=== PATIENT | female | born 1940 | race Caucasian/White ===

== ENCOUNTER 2017-02-15 06:26 | Emergency (ER) | payer OTHER ==
[~2017-02-15] VITALS: Ht 161.3 cm; Wt 53.2 kg
[~2017-02-15 06:26] MED LIST: BABY81CH CHEW; LEVO.075 PO
[2017-02-15 06:40] VITALS: BP 169/89; PULSE 71; RESP 16; TEMP 98.7; O2SAT 98
--- NOTE | 2017-02-15 07:13 | PD ---
HPI Chief Complaint: Injury Time Seen by Provider: 07:13 Travel History International Travel<30 days: No Contact w/Intl Traveler<30days: No Traveled to known affect area: No History of Present Illness HPI 77-year-old female came to the emergency room with history of injury to her right elbow 5 days ago. Patient tripped and tried to catch her fall and ended up hitting her elbow on a closet nearby. Since then she has noticed that her elbow and slowly her forearm has been hurting. There is a swelling that is progressively getting worse on the elbow. She has been trying to ice it alternating it with heat. Today decided to come in since the pain was worsening. No other issues. Vital signs were stable. [facility] Past Medical History Narrative Medical List of her past medical, surgical, social and family history was reviewed from the nursing note. Hx Anticoagulant Therapy: Yes (ASA 81MG) Cardiovascular Problems: Yes High Cholesterol: Yes Chemotherapy: No Cerebrovascular Accident: No Coronary Artery Disease: Yes Diabetes: No Diminished Hearing: No Respiratory: No Thyroid Disease: Yes (HYPO) Menopausal: Yes : 4 Para: 4 Past Surgical History Section: Yes (X4) Cholecystectomy: Yes Hysterectomy: No Social History Alcohol Use: No Tobacco Use: Yes (1 ppd) Substance Use: No Allergies-Medications (Allergen,Severity, Reaction): Coded Allergies: Penicillin (Verified Allergy, Severe, rash, 02/18/17) Sulfa (Verified Allergy, Severe, rash, 02/18/17) Tetanus Toxoid (Verified Adverse Reaction, Severe, SWELLING AT SITE, ) Comments List of her allergies reviewed from the nursing note. Reported Meds & Prescriptions Reported Meds & Active Scripts Active Hydrocodone-Acetaminophen 5-325 mg Tab 1 Tab PO Q6H PRN Reported Synthroid (Levothyroxine Sodium) 75 Mcg Tab 75 Mcg PO DAILY Aspirin 81 Mg Chew 81 Mg CHEW DAILY Narrative Medication List of her home medications reviewed from the nursing note. Review of Systems Except as stated in HPI: all other systems reviewed are Neg Physical Exam Narrative GENERAL: Awake, alert, no obvious distress SKIN: Focused skin assessment warm/dry. Skin over the right elbow is erythematous and swollen. HEAD: Atraumatic. Normocephalic. EYES: Pupils equal and round. No scleral icterus. No injection or drainage. ENT: No nasal bleeding or discharge. Mucous membranes pink and moist. NECK: Trachea midline. No JVD. CARDIOVASCULAR: Regular rate and rhythm. No murmur appreciated. RESPIRATORY: No accessory muscle use. Clear to auscultation. Breath sounds equal bilaterally. GASTROINTESTINAL: Abdomen soft, non-tender, nondistended. Hepatic and splenic margins not palpable. MUSCULOSKELETAL: No obvious deformities. No clubbing. No cyanosis. No edema. Right elbow swollen but distal pulses and sensation intact. Limited motion at the elbow and the wrist joint due to the pain. NEUROLOGICAL: Awake and alert. No obvious cranial nerve deficits. Motor grossly within normal limits. Normal speech. PSYCHIATRIC: Appropriate mood and affect; insight and judgment normal. Data Data Last Documented VS Orders Elbow, Complete (4 Vws) (02/15/17 06:43) Ibuprofen (Motrin) (02/15/17 07:15) Support Splint (02/15/17 08:21) Fiberglass Sugartong Sp Ad Arm (02/15/17 ) Sling Cradle Arm (02/15/17 ) MDM Medical Decision Making Medical Screen Exam Complete: Yes Emergency Medical Condition: Yes Medical Record Reviewed: Yes Differential Diagnosis Elbow fracture, elbow dislocation, sprain Narrative Course 8:26 AM radiology reports came back and he is questioning a possible medial epicondylar fracture. Given patient's swelling and discomfort I have decided to put a sugar tong splint. This is getting applied right now. I've explained this to the patient. 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 She understands all and make an appointment for follow-up. Procedures EKG Prior to Arrival: No Diagnosis Primary Impression: Fracture of medial epicondyle of humerus Qualified Code: S42.444A - Closed nondisplaced fracture of medial epicondyle of right humerus, unspecified fracture morphology, initial encounter Referrals: Tha Terrazas MD 2 days Additional Instructions: Please keep the splint clean and dry. Keep the arm elevated above the heart level. Apply ice compress 20 minutes on and 20 minutes off. Follow-up with the orthopedist's name and number given provided to you.You have been provided prescriptions for pain medication. Take them as needed only. The medication will make you groggy and hence keeping that in mind be careful. The medication can also make it constipated. Hence another prescription for stool softener has also been provided. Take the stool softener if you are taking the pain medication. Med/Other Pt SpecificInfo: Prescription(s) given Scripts Hydrocodone-Acetaminophen 5-325 mg Tab1 Tab PO Q6H PRN (PAIN) #15 TAB Ref 0 Prov:Paul Elizabeth MD 02/15/17 Disposition: 01 DISCHARGE HOME Condition: Stable Paul Elizabeth MD Feb 15, 2017 07:13 Paul Elizabeth MD Feb 15, 2017 07:13
[2017-02-15] MEDS ORDERED: IBUPROFEN 400 MG TAB PO ONE (07:15)
[2017-02-15] MEDS ORDERED: LEVO.075 PO (07:18)
[2017-02-15] MEDS ORDERED: ASPI81CH CHEW (07:18)
--- NOTE | 2017-02-15 08:10 | RADHPO ---
EXAM DATE/TIME: 02/15/2017 07:05 [facility] COMPARISON: No previous studies available for comparison. INDICATIONS : Right elbow pain and swelling; hit elbow on corner of the wall. MEDICAL HISTORY : None. SURGICAL HISTORY : None. ENCOUNTER: Initial ACUITY: 3 days PAIN SCORE: 5/10 LOCATION: Right elbow. FINDINGS: There is cortical irregularity involving the medial epicondyle of the distal humerus raising possibil ity of acute fracture or erosive arthritic change. [id number] correlation is recommended. An elbow j oint effusion is likely. There is soft tissue swelling surrounding the right elbow. CONCLUSION: 1. Cortical irregularity involving the medial epicondyle o the right distal humerus raising possibil ity of acute fracture versus erosive arthritic change. A small elbow joint effusion is likely. Soft tissue swelling is also noted. Clinical correlation is recommended. Khari Jones MD on February 15, 2017 at 7:27 Board Certified Radiologist. This report was verified electronically.
[2017-02-15] MEDS ORDERED: COLA100C3 PO (08:32)
[2017-02-15] MEDS ORDERED: HYDR-3516 PO (08:32)
== END 2017-02-15 08:58 | disposition home or self-care (01) ==
LOC: PHEFT 06:26
DX: S42.444A Nondisplaced fracture (avulsion) of medial epicondyle of right humerus, initial encounter for closed fracture (principal); E07.9 Disorder of thyroid, unspecified; E78.00 Pure hypercholesterolemia, unspecified; F17.200 Nicotine dependence, unspecified, uncomplicated; Z79.82 Long term (current) use of aspirin; Z86.79 Personal history of other diseases of the circulatory system; W01.190A Fall on same level from slipping, tripping and stumbling with subsequent striking against furniture, initial encounter
CPT/HCPCS: 29125; 73080

== ENCOUNTER 2017-02-18 07:41 | Emergency (ER) | payer OTHER ==
[~2017-02-18] VITALS: Ht 154.9 cm; Wt 51.8 kg
[~2017-02-18 07:41] MED LIST changes: +ASPI81CH CHEW; -BABY81CH CHEW; +COLA100C3 PO; +HYDR-3516 PO
[2017-02-18 07:50] VITALS: PULSE 68; RESP 19; TEMP 98.3; O2SAT 97
[2017-02-18 08:00] VITALS: BP 169/70; PULSE 75; RESP 18; O2SAT 99
--- NOTE | 2017-02-18 09:08 | PD ---
HPI Chief Complaint: Injury Time Seen by Provider: 08:10 Travel History International Travel<30 days: No Contact w/Intl Traveler<30days: No Traveled to known affect area: No History of Present Illness HPI Patient is a 77-year-old female who presents to emergency room for reevaluation of her left arm. Patient reports that she was seen on February 15, 2017 was diagnosed with a medial epicondyle fracture after she suffered a mechanical trip and fall on February 11, 2017. Patient reports that she was splinted and sent home, reports that she thinks that her splint is too tight as her fingers appear swollen and painful. Patient requesting that she needs her splint loosened. Denies any other injuries or complaints at this time. PFSH Past Medical History Hx Anticoagulant Therapy: Yes (ASA 81MG) Cardiovascular Problems: Yes High Cholesterol: Yes Chemotherapy: No Cerebrovascular Accident: No Coronary Artery Disease: Yes Diabetes: No Diminished Hearing: No Respiratory: No Thyroid Disease: Yes (HYPO) ?: Not Menopausal: Yes : 4 Para: 4 Past Surgical History Section: Yes (X4) Cholecystectomy: Yes Hysterectomy: No Social History Alcohol Use: No Tobacco Use: Yes (1 ppd) Substance Use: No Allergies-Medications (Allergen,Severity, Reaction): Coded Allergies: Penicillin (Verified Allergy, Severe, rash, 02/18/17) Sulfa (Verified Allergy, Severe, rash, 02/18/17) Tetanus Toxoid (Verified Adverse Reaction, Severe, SWELLING AT SITE, ) Reported Meds & Prescriptions Reported Meds & Active Scripts Active Hydrocodone-Acetaminophen 5-325 mg Tab 1 Tab PO Q6H PRN Reported Synthroid (Levothyroxine Sodium) 75 Mcg Tab 75 Mcg PO DAILY Aspirin 81 Mg Chew 81 Mg CHEW DAILY Review of Systems General / Constitutional: No: Fever Eyes: No: Visual changes HENT: No: Headaches Cardiovascular: No: Chest Pain or Discomfort Respiratory: No: Shortness of Breath Gastrointestinal: No: Abdominal Pain Genitourinary: No: Dysuria Musculoskeletal: Positive: Limited ROM, Edema, Pain (left arm) Skin: No Rash Neurologic: No: Weakness Psychiatric: No: Depression Endocrine: No: Polydipsia Hematologic/Lymphatic: No: Easy Bruising Physical Exam Narrative GENERAL: NAD SKIN: Focused skin assessment warm/dry. HEAD: Atraumatic. Normocephalic. NECK: Trachea midline. No JVD. CARDIOVASCULAR: Regular rate and rhythm. No murmur appreciated. RESPIRATORY: No accessory muscle use. Clear to auscultation. Breath sounds equal bilaterally. GASTROINTESTINAL: Abdomen soft, non-tender, nondistended. Hepatic and splenic margins not palpable. MUSCULOSKELETAL: No obvious deformities. No clubbing. No cyanosis. LUE in splint, fingers are swollen, warm with good cap refill, normal rom, neurovascularly intact, pulses intact, compartments are soft NEUROLOGICAL: Awake and alert. No obvious cranial nerve deficits. Motor grossly within normal limits. Normal speech. PSYCHIATRIC: Appropriate mood and affect; insight and judgment normal. Data Data Last Documented VS Vital Signs Date Time Temp Pulse Resp B/P Pulse Ox O2 Delivery O2 Flow Rate FiO2 02/18/17 08:00 75 18 169/70 99 02/18/17 07:50 98.3 [facility] Medical Decision Making Medical Screen Exam Complete: Yes Emergency Medical Condition: Yes Interpretation(s) Vital Signs Date Time Temp Pulse Resp B/P Pulse Ox O2 Delivery O2 Flow Rate FiO2 02/18/17 08:00 75 18 169/70 99 02/18/17 07:50 98.3 68 19 97 Differential Diagnosis Left-sided medial epicondylar fracture, compartment syndrome Narrative Course 77-year-old female who presents to emergency room for evaluation of pain to her left arm after she suffered a fall and was diagnosed at the medial epicondylar fracture on February 15, 2017. Patient reports that after this point was placed, she had pain and swelling in her hands, patient did have good pulses to her left hand, neurovascularly intact, pulses intact, no signs of compartment syndrome. Once splint was loosened, patient reports complete resolution of symptoms. Reports "it doesn't feel tight or hurt anymore." Patient will follow up with Dr. Cruz on 02/22/17 as scheduled. Signs and symptoms of when to return to ER was reviewed with patient in detail. Diagnosis Primary Impression: Encounter for wound re-check Patient Instructions: General Instructions Additional Instructions: Please follow-up with your primary care doctor Please follow-up with your orthopedic surgeon as scheduled Return to the emergency room as needed Disposition: 01 DISCHARGE HOME Condition: Stable Kellie Chavisnifer Edinson CHAPA Feb 18, 2017 09:08
== END 2017-02-18 09:21 | disposition home or self-care (01) ==
LOC: PHED 07:41
DX: S42.444D Nondisplaced fracture (avulsion) of medial epicondyle of right humerus, subsequent encounter for fracture with routine healing (principal); Z79.01 Long term (current) use of anticoagulants; E78.00 Pure hypercholesterolemia, unspecified; W01.0XXD Fall on same level from slipping, tripping and stumbling without subsequent striking against object, subsequent encounter; F17.210 Nicotine dependence, cigarettes, uncomplicated
CPT/HCPCS: 99282